=== PATIENT | female | born 1985 | race African-American/Black ===

== ENCOUNTER 2019-04-06 15:02 | Emergency (ER) | payer SELFPAY ==
[2019-04-06 15:43] LABS: #Basophils 0.1 thou/uL (0.0-0.2); #Eosinphils 0.2 thou/uL (0.0-0.7); #Lymphocytes 2.5 thou/uL (1.20-3.40); #Monocytes 0.4 thou/uL (0.11-0.59); #Neutrophils 5.1 thou/uL (1.40-6.50); %Basophils 1.1 % (0.0-1.0); %Eosinophils 2.1 % (0.0-10.0); %Lymphocytes 29.8 % (21.0-51.0); %Monocytes 5.2 % (0.0-10.0); %Neutrophils 61.8 % (42.0-75.0); Hemoglobin 8.9 g/dL (12.0-16.0); Mean Corpuscular HGB CONC 31.6 g/dL (32.0-36.0); Mean Corpuscular Hemoglobin 21.5 pg (27.0-31.0); Mean Corpuscular Volume 68.1 fL (78.0-98.0); Mean Platelet Volume 10.1 fL (7.4-10.4); Platelet Count 234 thou/uL (130-400); RBC Distribution Width 15.8 % (11.5-14.5); Red Blood Cell (RBC) Count 4.15 mill/uL (4.20-5.40); White Blood Cell (WBC) Count 8.3 thou/uL (4.8-10.8)
[2019-04-06] MEDS ORDERED: Morphine 4 MG/ML VIAL ONE (15:57)
[2019-04-06] MEDS ORDERED: Morphine 2 MG/ML SYRINGE ONE (15:58)
[2019-04-06 16:01] LABS: ALT (SGPT) 10 U/L (8-55); AST (SGOT) 13 U/L (5-34); Albumin 3.9 g/dL (3.5-5.0); Alkaline Phosphatase 41 U/L (40-110); Anion Gap 12 mmol/L (10-20); BUN (Urea Nitrogen) 11 mg/dL (7.0-18.7); Bilirubin, Total 0.3 mg/dL (0.2-1.2); Calc. Creatinine Clearance 0 mL/min (70-130); Calcium 8.7 mg/dL (7.8-10.44); Carbon Dioxide 24 mmol/L (22-29); Chloride 106 mmol/L (98-107); Estimated GFR-MDRD 86; Globulin 2.5 g/dL (2.4-3.5); Glucose 96 mg/dL (70-105); Lipase 28 U/L (8-78); Potassium 3.7 mmol/L (3.5-5.1); Protein, Total 6.4 g/dL (6.0-8.3); Sodium 138 mmol/L (136-145)
[2019-04-06 16:05] LABS: Elliptocytes SLIGHT = 2-5 cells (100X) (0-1/hpf); Hypochromia SLIGHT = 6-15 cells (100X) (0-5/hpf); MDiff Complete? YES; Microcytosis MODERATE=15-30 cells (100X) (0-5/hpf); Platelet Morphology Comment Appears Adequate; Polychromasia SLIGHT = 2-3 cells (100X) (0-2/hpf); Stomatocytes SLIGHT = 2-5 cells (100X) (0-1/hpf); Target Cells SLIGHT = 2-5 cells (100X) (0-1/hpf); Tear Drops SLIGHT = 2-5 cells (100X) (0-1/hpf)
[2019-04-06 16:26] LABS: Pregnancy Test - Urine (BHCG) Negative (Negative); Pregu Control Background? CLEAR/WHITE (CLR/WHITE); Pregu Control Bar Appear? YES (CONTROL BAR); Specific Gravity 1.023 (1.002-1.036)
[2019-04-06 16:31] LABS: Bilirubin Negative (Negative); Blood, Urine Negative (Negative); Clarity Clear (Clear); Glucose, Urine (Dipstick) Normal (Negative); Leukocyte Negative Leu/uL (Negative); Nitrite Negative (Negative); Protein, Urine (Dipstick) 20 mg/dL (Neg-Trace); Urobilinogen Normal mg/dL (Less than 2)
--- NOTE | 2019-04-06 17:02 | ULT ---
GALLBLADDER ULTRASOUND: 04/06/19 HISTORY: Right upper quadrant pain. Real time imaging of the right upper quadrant shows normal appearing gallbladder. Common duct is 3 mm . Liver measures 16 cm in length. There is some mild increased echogenicity. The pancreas and right kidney appear unremarkable. IMPRESSION: 1. No evidence of gallstones. Normal caliber common duct at 3 to 4 mm. 2. Suggestion of some mild fatty change of the liver. POS: [facility]
--- NOTE | 2019-04-06 17:14 | RAD ---
PA AND LATERAL CHEST: 04/06/19 HISTORY: Right lower chest pain. COMPARISON: 04/04/19 study. Heart size is moderately enlarged. Aorta is tortuous. The lungs are clear of infiltrates. No signific ant bony findings. IMPRESSION: Moderate cardiomegaly. POS: [facility]
== END 2019-04-06 19:44 | disposition home or self-care (01) ==
LOC: ERS 15:02
DX: R10.11 Right upper quadrant pain (principal)
CPT/HCPCS: 36415; 71046; 76705; 80053; 81003; 81025; 83690; 85025; 96374; J2270